=== PATIENT | male | born 1995 | race Caucasian/White ===

== ENCOUNTER 2018-06-07 11:30 | Emergency (ER) | payer OTHER ==
[~2018-06-07] VITALS: Ht 213.4 cm; Wt 122.7 kg
[~2018-06-07 11:30] MED LIST: NOCURR
[2018-06-07 11:41] VITALS: BP 131/63
[2018-06-07 11:49] LABS: GLUCOSE,POINT OF CARE 90 MG/DL (70-110)
[2018-06-07] MEDS ORDERED: LevETIRAcetam 500 MG TABLET PO ONE (12:00)
[2018-06-07] MEDS ORDERED: LEVE500T8 PO (12:02)
== END 2018-06-07 13:41 | disposition home or self-care (01) ==
LOC: EMS 11:30
DX: G40.909 Epilepsy, unspecified, not intractable, without status epilepticus (principal); Z88.0 Allergy status to penicillin; F12.90 Cannabis use, unspecified, uncomplicated
CPT/HCPCS: 99283